=== PATIENT | male | born 1995 | race Caucasian/White ===

== ENCOUNTER 2016-05-22 13:47 | Emergency (ER) | payer OTHER ==
[~2016-05-22] VITALS: Ht 180.3 cm; Wt 79.4 kg
[2016-05-22 13:58] VITALS: BP 134/81
--- NOTE | 2016-05-22 14:08 | PHYS DOC ---
Past Medical History Past Medical History: No Pertinent History Past Surgical History: Other Additional Past Surgical Histo: wisdom teeth removed Alcohol Use: Occasionally Drug Use: None Adult General Chief Complaint Chief Complaint: HAND PROBLEM HPI HPI Patient is a 21 year old [id number] male presents emergency Department today with complaint of left hand pain and swelling secondary to punching a padded gym wall approximately 20-30 minutes prior to arrival. Patient states he was upset about the outcome of the basketball in the was playing in stool. He denies any history of previous fractures or dislocations to the left hand or wrist. He denies any history of bone forming disorders. Review of Systems Review of Systems Constitutional: Denies fever or chills [] Eyes: Denies change in visual acuity, redness, or eye pain [] HENT: Denies nasal congestion or sore throat [] Respiratory: Denies cough or shortness of breath [] Cardiovascular: No additional information not addressed in HPI [] GI: Denies abdominal pain, nausea, vomiting, bloody stools or diarrhea [] : Denies dysuria or hematuria [] Musculoskeletal: Denies back pain or joint pain [] Integument: Denies rash or skin lesions [] Neurologic: Denies headache, focal weakness or sensory changes [] Endocrine: Denies polyuria or polydipsia [] Current Medications Current Medications Current Medications Medications (Trade) Dose Ordered Sig/Lawrence Start Time Stop Time Status Last Admin Dose Admin Ibuprofen (Motrin) 600 mg 1X ONCE 05/22/16 14:15 05/22/16 14:16 DC 05/22/16 14:10 600 MG Allergies Allergies Allergies Coded Allergies Type Severity Reaction Last Updated Verified No Known Drug Allergies 05/22/16 No Physical Exam Physical Exam Constitutional: Well developed, well nourished, no acute distress, non-toxic appearance. [] HENT: Normocephalic, atraumatic, bilateral external ears normal, oropharynx moist, no oral exudates, nose normal. [] Eyes: PERRLA, EOMI, conjunctiva normal, no discharge. [] Neck: Normal range of motion, no tenderness, supple, no stridor. [] Cardiovascular:Heart rate regular rhythm, no murmur [] Lungs & Thorax: Bilateral breath sounds clear to auscultation [] Abdomen: Bowel sounds normal, soft, no tenderness, no masses, no pulsatile masses. [] Skin: Warm, dry, no erythema, no rash. [] Back: No tenderness, no CVA tenderness. [] Extremities: Left elbow, forearm and wrist are normal in appearance and nontender palpation. Patient has moderate amount of swelling to the fifth MCP J. There is tenderness to palpation directly to the distal fifth metacarpal/MCP J. Patient demonstrates limited range of motion secondary to pain in the fifth finger. He is able to flex and extend at the PIPJ and DIPJ. Fingers neurovascularly intact with capillary refill less than 2 seconds. Neurologic: Alert and oriented X 3, normal motor function, normal sensory function, no focal deficits noted. [] Psychologic: Affect normal, judgement normal, mood normal. [] Current Patient Data Vital Signs Vital Signs Date Time Temp Pulse Resp B/P Pulse Ox O2 Delivery O2 Flow Rate FiO2 05/22/16 13:58 97.8 96 14 96 Room Air 97.8 EKG EKG [] Radiology/Procedures Radiology/Procedures [facility] [address] [place] [address] IMAGING REPORT Signed PATIENT: BAILEY BONE ACCOUNT: [id number] : 1995 LOCATION: ER AGE: 21 SEX: M EXAM STATUS: REG ER ORD. PHYSICIAN: XU GRIGGS REASON: pain and swelling to 5th MCPJ after punching a wall PROCEDURE: HAND LEFT 3V Left hand, 3 views, 05/22/2016: History: Punched wall, pain There is a fracture of the distal fifth metacarpal. There is mild volar and minimal radial angulation of the distal fracture fragment. No other fracture or dislocation is identified. IMPRESSION: Acute fracture distal fifth metacarpal DICTATED and SIGNED BY: NICOLE LATIF MD DATE: 05/22/16 1428 CC: XU GRIGGS; CASPER DOSS ~ Patient's hand was wrapped with prewrap. 3 inch Ortho-Glass was applied for an ulnar gutter/boxer's fracture splint. The splint was applied by myself. Patient was reevaluated post-application. Left fourth and fifth fingers were neurovascularly intact with capillary refill less than 2 seconds. Course & Med Decision Making Course & Med Decision Making Pertinent Labs and Imaging studies reviewed. (See chart for details) [] Dragon Disclaimer Dragon Disclaimer This electronic medical record was generated, in whole or in part, using a voice recognition dictation system. Departure Departure Impression: Primary Impression: Fx metacarpal neck-closed Disposition: HOME, SELF-CARE Condition: STABLE Referrals: CASPER DOSS (PCP) AMBROSE PEREIRA MD Patient Instructions: Hand Fracture, Metacarpals, [id number], Splint Care, [id number] Additional Instructions: 1. Take the medication as prescribed. 2. Apply ice every 2 hours for 20-30 minutes at a time. 3. Keep hand elevated as much as possible. 4. Follow-up with Dr. Pereira by calling the office either this afternoon or tomorrow to schedule follow-up appointment. Scripts Hydrocodone/Apap 5-325 ([place] 5-325 Tablet)1 Each Tablet1 Tab PO PRN Q6HRS PRN PAIN #15 TAB Prov:XU GRIGGS 05/22/16 Problem Qualifiers Primary Impression: Fx metacarpal neck-closed Encounter type: initial encounter Metacarpal bone: fifth Fracture alignment : displaced Laterality: left Qualified Code: S62.337A - Displaced fracture of neck of fifth metacarpal bone, left hand, initial encounter for closed fracture XU GRIGGS May 22, 2016 14:08
[2016-05-22] MEDS ORDERED: IBUPROFEN 600 MG TABLET. PO ONE (14:15)
--- NOTE | 2016-05-22 14:32 | RAD ---
Left hand, 3 views, 05/22/2016: History: Punched wall, pain There is a fracture of the distal fifth metacarpal. There is mild volar and minimal radial angulation of the distal fracture fragment. No other fracture or dislocation is identified. IMPRESSION: Acute fracture distal fifth metacarpal
[2016-05-22] MEDS ORDERED: HYDR-971 PO (14:38)
== END 2016-05-22 14:42 | disposition home or self-care (01) ==
LOC: ER 13:47
DX: S62.337A Displaced fracture of neck of fifth metacarpal bone, left hand, initial encounter for closed fracture (principal); W22.01XA Walked into wall, initial encounter; Y93.B9 Activity, other involving muscle strengthening exercises; Y92.39 Other specified sports and athletic area as the place of occurrence of the external cause; Y99.8 Other external cause status
CPT/HCPCS: 29125; 73130; 99284-25

== ENCOUNTER 2017-03-18 20:10 | Emergency (ER) | payer OTHER | END 2017-03-18 21:13 | disposition home or self-care (01) | LOC: ER 20:10 | DX: S60.051A Contusion of right little finger without damage to nail, initial encounter (principal); W23.0XXA Caught, crushed, jammed, or pinched between moving objects, initial encounter; Y93.89 Activity, other specified; Y92.89 Other specified places as the place of occurrence of the external cause; Y99.8 Other external cause status | CPT/HCPCS: 73140; 99284-25 ==